=== PATIENT | male | born 1975 ===

== ENCOUNTER 2017-05-24 10:03 | Emergency (ER) | payer OTHER ==
[2017-05-24 10:39] VITALS: BP 149/93; PULSE 85; RESP 16; TEMP 99.1
[2017-05-24 10:54] VITALS: O2SAT 98
--- NOTE | 2017-05-24 11:33 | ED PDOC ---
HPI: Male Pain Time Seen by Provider: 05/24/17 11:02 Chief Complaint (Nursing): Abdominal Pain Chief Complaint (Provider): Right testicular pain History Per: Patient History/Exam Limitations: no limitations Onset/Duration Of Symptoms: Persistent Current Symptoms Are (Timing): Still Present Quality Of Discomfort: "Pain" Additional History Per: Patient Additional Complaint(s): 41yo male, presents to ED with complaints of right testicular pain for the past 7 months. He denies any trauma, dysuria, pain upon ejaculation, fever or chills. He has no other medical complaints. Past Medical History Reviewed: Historical Data, Nursing Documentation, Vital Signs Vital Signs: Last Vital Signs Temp 99.1 F 05/24/17 10:38 Pulse 85 05/24/17 10:38 Resp 16 05/24/17 10:38 BP 149/93 H 05/24/17 10:38 Pulse Ox 98 05/24/17 10:48 - Medical History PMH: No Chronic Diseases - Surgical History Surgical History: No Surg Hx - Family History Family History: States: No Known Family Hx - Immunization History Hx Tetanus Toxoid Vaccination: No Hx Influenza Vaccination: No Hx Pneumococcal Vaccination: No - Home Medications Home Medications: Ambulatory Orders Medication Instructions Recorded Naproxen [Naprosyn] 500 mg PO Q12H #20 tab 05/24/17 - Allergies Allergies/Adverse Reactions: Allergies Allergy/AdvReac Type Severity Reaction Status Date / Time No Known Allergies Allergy Verified 05/24/17 10:48 Review of Systems ROS Statement: Except As Marked, All Systems Reviewed And Found Negative Constitutional: Negative for: Fever, Chills Genitourinary Male: Positive for: Other (testicular pain). Negative for: Dysuria Physical Exam - Reviewed Nursing Documentation Reviewed: Yes Vital Signs Reviewed: Yes - Physical Exam Appears: Positive for: Non-toxic, No Acute Distress Head Exam: Positive for: ATRAUMATIC, NORMAL INSPECTION, NORMOCEPHALIC Skin: Positive for: Normal Color Neck: Positive for: Supple Cardiovascular/Chest: Positive for: Regular Rate, Rhythm Respiratory: Negative for: Respiratory Distress Gastrointestinal/Abdominal: Positive for: Normal Exam, Soft. Negative for: Tenderness Male Genital Exam: Positive for: normal genitalia, no hernia. Negative for: hernia mass, lesions, scrotum tenderness (R), testicular tenderness (R), urethral discharge Lymphatic: Negative for: Adenopathy Neurologic/Psych: Positive for: Alert, Oriented. Negative for: Motor/Sensory Deficits - ECG O2 Sat by Pulse Oximetry: 98 (RA) Pulse Ox Interpretation: Normal Medical Decision Making Medical Decision Making: Impression: Testicular pain Plan: -- Urine culture -- Testes Duplex Complete US Scribe Attestation: Documented by Valeria Ratliff, acting as a scribe for Dallas Sagsatume MD. Provider Scribe Attestation: All medical record entries made by the Scribe were at my direction and personally dictated by me. I have reviewed the chart and agree that the record accurately reflects my personal performance of the history, physical exam, medical decision making, and the department course for this patient. I have also personally directed, reviewed, and agree with the discharge instructions and disposition. Disposition - Clinical Impression Clinical Impression: Epididymal cyst - Patient ED Disposition Is Patient to be Admitted: No Counseled Patient/Family Regarding: Studies Performed, Diagnosis, Need For Followup, Rx Given - Disposition Referrals: Kris Nayak Jr., MD [Staff Provider] - Disposition: Routine/Home Disposition Time: 13:03 Condition: FAIR Prescriptions: Naproxen [Naprosyn] 500 mg PO Q12H #20 tab Instructions: Testicle Pain (ED) Forms: [facility] (Amharic)
--- NOTE | 2017-05-24 12:46 | US ---
HISTORY: Right testicular pain. Duration of symptoms: 4-6 months. TECHNIQUE: Realtime sonography through the scrotum with color and doppler flow. COMPARISON: None Available. FINDINGS: RIGHT TESTICLE: Measures 3.3 x 2 x 4.5 cm. Normal echotexture and flow. RIGHT EPIDIDYMIS: Epididymal head measures 0.8 x 1 x 1.1 cm. Grossly unremarkable appearance with normal flow.Incidental finding(s): Small cyst 2 x 2.5 mm and 3 x 4 mm. LEFT TESTICLE: Measures 0.9 x 4.4 cm. Normal echotexture and flow. LEFT EPIDIDYMIS: Epididymal head measures 1 x 0.8 cm. Multiple (3) simple cysts 2 x 3 mm, 3 x 3 mm, 4 x 5 mm. HYDROCELE: Bilateral, small. VARICOCELE: None. OTHER FINDINGS: None. IMPRESSION: Negative study for epididymitis, orchitis, torsion. Additional benign and/or incidental findings described above.
== END 2017-05-24 13:50 | disposition home or self-care (01) ==
LOC: H.ER 10:03
DX: N50.819 Testicular pain, unspecified (principal)

== ENCOUNTER 2017-07-15 16:48 | Emergency (ER) | payer OTHER, SELFPAY ==
[2017-07-15 17:06] VITALS: BP 162/84; PULSE 90; RESP 16; TEMP 98.3; O2SAT 99
--- NOTE | 2017-07-15 18:29 | RAD ---
HISTORY: back pain COMPARISON: No prior. TECHNIQUE: Chest PA and lateral FINDINGS: LUNGS: No active pulmonary disease. PLEURA: No significant pleural effusion identified. No pneumothorax apparent. CARDIOVASCULAR: Normal. OSSEOUS STRUCTURES: No significant abnormalities. VISUALIZED UPPER ABDOMEN: Normal. OTHER FINDINGS: None. IMPRESSION: No active disease.
--- NOTE | 2017-07-15 19:07 | ED PDOC ---
HPI: Back Time Seen by Provider: 07/15/17 17:08 Chief Complaint (Nursing): Back Pain Chief Complaint (Provider): Back Pain History Per: Patient History/Exam Limitations: no limitations Onset/Duration Of Symptoms: Days (x 2 weeks ) Current Symptoms Are (Timing): Still Present Additional Complaint(s): 41 year old male with a history of pneumonia (9 years ago) presents to the ED complaining of intermittent back pain, onset 2 weeks ago. He reports it happens at night, at home sometimes and when he is cold. Also reports 1 episode of nose bleeding 2 weeks ago and is wondering if he has an infection in his lungs. Otherwise: (-) paresthesias, (-) weakness, (-) acute bowel or bladder dysfunction, (-) fever, (-) chest pain, (-) shortness of breath, (-) cough. PMD: none provided Past Medical History Reviewed: Historical Data, Nursing Documentation, Vital Signs Vital Signs: Last Vital Signs Temp 98.3 F 07/15/17 17:03 Pulse 90 07/15/17 17:03 Resp 16 07/15/17 17:03 BP 162/84 H 07/15/17 17:03 Pulse Ox 99 07/15/17 17:03 - Medical History PMH: Pneumonia (9 years ago) - Surgical History Surgical History: No Surg Hx - Family History Family History: States: Unknown Family Hx - Immunization History Hx Tetanus Toxoid Vaccination: No Hx Influenza Vaccination: No Hx Pneumococcal Vaccination: No - Home Medications Home Medications: Ambulatory Orders Medication Instructions Recorded Naproxen [Naprosyn] 500 mg PO Q12H #20 tab 05/24/17 - Allergies Allergies/Adverse Reactions: Allergies Allergy/AdvReac Type Severity Reaction Status Date / Time No Known Allergies Allergy Verified 07/15/17 17:02 Review of Systems ROS Statement: Except As Marked, All Systems Reviewed And Found Negative ENT: Positive for: Other (nose bleed (1 episode 2 weeks ago)) Musculoskeletal: Positive for: Back Pain Physical Exam - Reviewed Nursing Documentation Reviewed: Yes Vital Signs Reviewed: Yes - Physical Exam Comments: GENERAL APPEARANCE: Patient is awake, alert, oriented x 3, in no acute distress. SKIN: Warm, dry; (-) cyanosis. EYES: (-) conjunctival pallor. ENMT: Mucous membranes moist. NECK: (-) tenderness, (-) stiffness, (-) lymphadenopathy. CHEST AND RESPIRATORY: (-) rales, (-) rhonchi, (-) wheezes; breath sounds equal bilaterally. HEART AND CARDIOVASCULAR: (-) irregularity; (-) murmur, (-) gallop. ABDOMEN AND GI: Soft; (-) tenderness; (-) palpable mass. BACK: (-) paravertebral tenderness, (-) spasm, (-) direct bony tenderness, (-) deformity. Straight leg raising (-) bilaterally. EXTREMITIES: (-) deformity. Distal pulses good bilaterally. NEURO AND PSYCH: Mental status as above. Intact sensation bilaterally; normal strength in extension of the knees, plantar and dorsiflexion of the toes. DTRs symmetric. - ECG O2 Sat by Pulse Oximetry: 99 (RA) Pulse Ox Interpretation: Normal Medical Decision Making Medical Decision Making: Time: 17:35 Impression: back pain, muscle spasm Initial Plan: --Chest x-ray CXR: NAD, as read by JOBY Patient remains awake, alert, oriented x 3 and is laying in bed comfortably. On exam, neck is supple, lungs are clear, abdomen is soft and non tender, heart is at regular rate and rhythm. Repeat neuro shows no focal findings. Advised to follow up with primary care physician in 1-2 days without fail. Return to the emergency room at any time for any new or worsening symptoms. Patient states he fully agrees with and understands discharge instructions. States that he agrees with the plan and disposition. Verbalized and repeated discharge instructions and plan. I have given the patient opportunity to ask any additional questions. ---- Scribe Attestation: Documented by Leatha Bright, acting as a scribe for Belia López PA-C Provider Scribe Attestation: All medical record entries made by the Scribe were at my direction and personally dictated by me. I have reviewed the chart and agree that the record accurately reflects my personal performance of the history, physical exam, medical decision making, and the department course for this patient. I have also personally directed, reviewed, and agree with the discharge instructions and disposition. Disposition - Clinical Impression Clinical Impression: Back pain - Patient ED Disposition Is Patient to be Admitted: No Counseled Patient/Family Regarding: Studies Performed, Diagnosis, Need For Followup - Disposition Referrals: [facility] [Outside] Disposition: Routine/Home Disposition Time: 18:40 Condition: STABLE Additional Instructions: Thank you for letting us take care of you today. You were treated for back pain. The emergency medical care you received today was directed at your acute symptoms. Return to the Emergency Department if your symptoms worsen, do not improve, or if you have any other problems. Please contact one of the physicians/clinics you have been referred to that are listed on the Patient Visit Information form that is included in your discharge packet. Bring any paperwork you were given at discharge with you along with any medications you are taking to your follow up visit. Our treatment cannot replace ongoing medical care by a primary care provider (PCP) outside of the emergency department. Thank you for allowing the [facility] team to be part of your care today. Instructions: Upper Back Pain (DC) Forms: [facility] (Bolivian), [facility] ED School/Work Excuse Print Language: [place]
== END 2017-07-15 18:29 | disposition home or self-care (01) ==
LOC: H.ER 16:48
DX: M54.9 Dorsalgia, unspecified (principal); R04.0 Epistaxis